=== PATIENT | male | born 1990 | race Caucasian/White ===

== ENCOUNTER 2017-04-14 17:35 | Emergency (ER) | payer SELFPAY ==
[2017-04-14 17:43] VITALS: BP 134/80
[2017-04-14] MEDS ORDERED: DUONEB *Not for PRN Use IH ONE (18:34)
--- NOTE | 2017-04-14 19:41 | XRay Report ---
FINAL REPORT EXAM: XR CHEST ROUTINE 2V HISTORY: wheezing TECHNIQUE: PA and lateral views of the chest PRIORS: None. FINDINGS: Lines, tubes, and devices: N/A Lungs and pleura: Trachea is normal in position. There is mild infiltrate in the medial aspect of the right lower lobe posteriorly. There is no evidence for pleural effusion, vascular congestion, or pneumothorax. Bilateral symmetrical rounded densities in the midlung zones are likely nipple shadows, confirmed on the lateral film. Cardiomediastinal silhouette: Cardiac and mediastinal silhouettes are unremarkable. Other: Bony structures are intact. IMPRESSION: Mild infiltrate in the medial aspect of the right lower lobe.
[2017-04-14] MEDS ORDERED: MOTRIN PO ONE (19:48)
--- NOTE | 2017-04-14 22:35 | Emergency Department Report ---
Entered by ANNA JEAN BAPTISTE, acting as scribe for DAINA QUINTEROS NP. ED Asthma HPI - General Chief Complaint: Upper Respiratory Infection Stated Complaint: MARIIA/CHEST PAIN Time Seen by Provider: 04/14/17 18:25 Source: patient Mode of arrival: Ambulatory Limitations: No Limitations - History of Present Illness Initial Comments: This is a 27 y/o male, nontoxic, well nourished in appearance, no acute signs of distress presents with asthma exacerbation x 2 days. Associated symptoms include productive cough with clear sputum, congestion and wheezing but he denies SOB, chest pain, headache, calf pain, calf tendnerss, stiff neck, numbness, tingling, fever, chills, nausea and vomiting. Patient states asthma was triggered by mold growing in his refrigeration (that has now been cleaned). Patient stated had similar episode and was treated with antibiotics and symptoms subsided. Patient denies any long car rides, recent hospital stay, or recent travels. Denies sick contact. No alleviating or aggravating factors. NKDA. PMHx of asthma and bronchitis. MD Complaint: "asthma attack" Onset/Timin -: days(s) Asthma History: adult onset Severity: mild Context: other (mold) Associated Symptoms: productive cough, fever, other (congestion, wheezing, denies: fever, chills, nausea, vomiting, SOB). denies: dry cough, chest pain, hemoptysis, leg edema, syncope - Related Data Current Asthma Therapy: none Previous Rx's Medication Instructions Recorded Last Taken Type ALBUTEROL Inhaler [ProAir HFA 2 puff IH QID PRN #1 inhalation 04/14/17 Unknown Rx Inhaler] Azithromycin [Zithromax Z-WAYLON] 250 mg PO DAILY #6 tablet 04/14/17 Unknown Rx predniSONE [Deltasone] 20 mg PO BID #10 tab 04/14/17 Unknown Rx Allergies Allergy/AdvReac Type Severity Reaction Status Date / Time Fish Containing Products Allergy Swelling Verified 04/14/17 17:40 mercury (elemental) Allergy Swelling Verified 04/14/17 17:40 ED Review of Systems Comment: All other systems reviewed and negative Constitutional: denies: chills, fever Eyes: denies: eye pain, eye discharge, vision change ENT: congestion Respiratory: cough, wheezing. denies: shortness of breath, SOB with exertion, SOB at rest Cardiovascular: denies: chest pain, palpitations, dyspnea on exertion, orthopnea , edema, syncope, paroxysmal nocturnal dyspnea Endocrine: no symptoms reported Gastrointestinal: denies: nausea, vomiting Genitourinary: denies: urgency, dysuria Musculoskeletal: denies: back pain, joint swelling, arthralgia Skin: denies: rash, lesions Neurological: denies: headache, weakness, paresthesias Psychiatric: denies: anxiety, depression Hematological/Lymphatic: denies: easy bleeding, easy bruising ED Past Medical Hx - Past Medical History Hx Asthma: Yes - Surgical History Past Surgical History?: No - Social History Smoking Status: Current Some Day Smoker Substance Use Type: Alcohol - Medications Home Medications: Home Medications Medication Instructions Recorded Confirmed Last Taken Type ALBUTEROL Inhaler [ProAir HFA 2 puff IH QID PRN #1 inhalation 04/14/17 Unknown Rx Inhaler] Azithromycin [Zithromax Z-WAYLON] 250 mg PO DAILY #6 tablet 04/14/17 Unknown Rx predniSONE [Deltasone] 20 mg PO BID #10 tab 04/14/17 Unknown Rx ED Physical Exam - General Limitations: No Limitations General appearance: alert, in no apparent distress - Head Head exam: Present: atraumatic, normocephalic, normal inspection - Eye Eye exam: Present: normal appearance, PERRL, EOMI. Absent: scleral icterus, conjunctival injection, nystagmus, periorbital swelling, periorbital tenderness Pupils: Present: normal accommodation - ENT ENT exam: Present: normal exam, normal orophraynx, mucous membranes moist, TM's normal bilaterally, normal external ear exam - Neck Neck exam: Present: normal inspection, full ROM. Absent: tenderness, meningismus, lymphadenopathy, thyromegaly - Respiratory Respiratory exam: Present: normal lung sounds bilaterally, wheezes (inspiratory and expiratory bilateral). Absent: respiratory distress, rales, rhonchi, stridor, chest wall tenderness, accessory muscle use, decreased breath sounds, prolonged expiratory - Cardiovascular Cardiovascular Exam: Present: regular rate, normal rhythm, normal heart sounds. Absent: irregular rhythm, systolic murmur, diastolic murmur, rubs, gallop - GI/Abdominal GI/Abdominal exam: Present: soft, normal bowel sounds. Absent: distended, tenderness, guarding, rebound, rigid, diminished bowel sounds, hyperactive bowel sounds, hypoactive bowel sounds, organomegaly - Rectal Rectal exam: Present: deferred - Extremities Exam Extremities exam: Present: normal inspection, full ROM, normal capillary refill. Absent: tenderness, pedal edema, joint swelling, calf tenderness - Back Exam Back exam: Present: normal inspection, full ROM. Absent: tenderness, CVA tenderness (R), CVA tenderness (L), muscle spasm, paraspinal tenderness, vertebral tenderness, rash noted - Neurological Exam Neurological exam: Present: alert, oriented X3, CN II-XII intact, normal gait, reflexes normal - Psychiatric Psychiatric exam: Present: normal affect, normal mood - Skin Skin exam: Present: warm, dry, intact, normal color. Absent: rash - Other Other exam information: Negative calf tenderness, redness or swelling. ED Course Vital Signs 04/14/17 17:40 Temperature 99.8 F H Pulse Rate 95 H Respiratory 20 Rate Blood Pressure 134/80 O2 Sat by Pulse 97 Oximetry - Reevaluation(s) Reevaluation #1: 04/14/17 18:57 Patient is speaking in full sentences with no signs of distress noted. ED Medical Decision Making - Medical Decision Making Ed course: This is a 27-year-old male that presents to the ED with asthma exacerbation patient was examined by myself. PAtient is stable. Xray has been obtained with mild infiltrate. Pt was notified is xray findings with no further questions. Pt received Duenob in the ED and solu-medrol 125mg IM. Patient stated symptoms has subsided. Wheezing subsided. Patient denies taking any recent antibiotics this year. Pt received Zpak at d/c. Pt also received alburterol and prednisone at d/ c. PT was instructed to follow-up with a primary care doctor in 24 hours or if symptoms such as chest pain, shortness of breath, fever, chills, stiff neck, headache or worsening of symptoms return to the emergency room as soon as possible. At the time of d/c, patient agrees to d/c plan with no questions. Patient is not toxic or ill in appearance at d/c. ED Disposition Clinical Impression: Asthma exacerbation Pneumonia Qualifiers: Pneumonia type: due to unspecified organism Laterality: right Lung location: middle lobe of lung Qualified Code(s): J18.1 - Lobar pneumonia, unspecified organism Disposition: DC-01 TO HOME OR SELFCARE Is pt being admited?: No Does the pt Need Aspirin: No Condition: Stable Instructions: Albuterol (By mouth), Prednisone (By mouth), Azithromycin (By mouth), Asthma (ED), Bacterial Pneumonia (ED) Additional Instructions: follow-up with a primary care doctor in 24 hours or if symptoms such as chest pain, shortness of breath, fever, chills, stiff neck, headache or worsening of symptoms return to the emergency room as soon as possible. Take medications as prescribed. Prescriptions: ALBUTEROL Inhaler [ProAir HFA Inhaler] 2 puff IH QID PRN #1 inhalation PRN Reason: Shortness Of Breath Azithromycin [Zithromax Z-WAYLON] 250 mg PO DAILY #6 tablet predniSONE [Deltasone] 20 mg PO BID #10 tab Referrals: [facility] [Outside] - [facility]5 Days SCOTT MOSLEY MD [Staff Physician] - 24 Hours PRIMARY CARE, [Primary Care Provider] - 24 Hours Forms: Work/School Release Form(ED) This documentation as recorded by the MARKEL jaquez ELIZABETH,accurately reflects the service I personally performed and the decisions made by ,DAINA QUINTEROS, PHERESIS NURSE.
== END 2017-04-14 20:09 | disposition home or self-care (01) ==
LOC: ED 17:35
DX: J45.901 Unspecified asthma with (acute) exacerbation (principal); J18.9 Pneumonia, unspecified organism; F17.210 Nicotine dependence, cigarettes, uncomplicated; Z88.8 Allergy status to other drugs, medicaments and biological substances; Z91.013 Allergy to seafood
CPT/HCPCS: 71020; 94640; 96372; 99283; J2930